=== PATIENT | male | born 1955 ===

== ENCOUNTER 2017-01-11 09:30 | Outpatient (RCR) | payer OTHER | END 2017-01-27 | disposition home or self-care (01) | LOC: PTY 09:30 | DX: R29.898 Other symptoms and signs involving the musculoskeletal system (principal); M54.17 Radiculopathy, lumbosacral region ==

== ENCOUNTER 2017-01-28 12:50 | Outpatient (RCR) | payer OTHER | END 2017-02-26 | disposition home or self-care (01) | LOC: PTY 12:50 | DX: R29.898 Other symptoms and signs involving the musculoskeletal system (principal); M54.17 Radiculopathy, lumbosacral region ==

== ENCOUNTER 2017-03-11 08:10 | Outpatient (RCR) | payer OTHER | END 2017-03-29 | disposition home or self-care (01) | LOC: PTY 08:10 | DX: R29.898 Other symptoms and signs involving the musculoskeletal system (principal); M54.17 Radiculopathy, lumbosacral region ==

== ENCOUNTER 2017-04-26 09:15 | Outpatient (RCR) | payer OTHER | END 2017-04-29 | disposition home or self-care (01) | LOC: PTY 09:15 | DX: R29.898 Other symptoms and signs involving the musculoskeletal system (principal); M54.17 Radiculopathy, lumbosacral region ==

== ENCOUNTER 2017-05-28 09:55 | Outpatient (RCR) | payer OTHER | END 2017-05-29 | disposition home or self-care (01) | LOC: PTY 09:55 | DX: R29.898 Other symptoms and signs involving the musculoskeletal system (principal); M54.17 Radiculopathy, lumbosacral region ==

== ENCOUNTER 2017-06-10 13:00 | Outpatient (RCR) | payer OTHER | END 2017-06-29 | disposition home or self-care (01) | LOC: PTY 13:00 | DX: R29.898 Other symptoms and signs involving the musculoskeletal system (principal); M54.17 Radiculopathy, lumbosacral region ==